=== PATIENT | female | born 2005 | race Caucasian/White ===

== ENCOUNTER 2023-03-07 11:51 | Emergency (ER) | payer MEDICAID, SELFPAY ==
[2023-03-07 11:57] VITALS: BP 120/87; PULSE 100; RESP 18; TEMP 36.8; O2SAT 99; BMI 18.8
--- NOTE | 2023-03-07 11:57 | ED.GENADULT ---
HPI - General Adult General Chief complaint: Head Injury Stated complaint: head injury Time Seen by Provider: 03/07/23 12:00 Source: patient Mode of arrival: ambulatory Limitations: no limitations History of Present Illness HPI narrative: 18yo female presenting for evaluation of head injury yesterday. Patient stated she hit her posterior head on a wall yesterday while playing with her dog. No LOC, no laceration, no vomiting. Mild nausea, neck pain, and blurriness following incident, worse when she woke up this morning. complaint: head injury Onset (ago): day(s) (1) Location: head (posterior) Radiation: neck Relieving factors: rest Associated symptoms: nausea/vomiting (nausea, no vomiting) Treatments prior to arrival: none Related Data Allergies Allergy/AdvReac Type Severity Reaction Status Date / Time No Known Allergies Allergy Verified 03/07/23 11:59 Review of Systems Review of Systems: Yes all other systems are reviewed and are negative [facility] Social History Social History Advance Directives: No Advance Directives Information Provided: Yes Physical Exam ED Vital Signs: Vital Signs - 24 hr 03/07/23 11:57 Temperature 98.3 F Pulse Rate 100 Respiratory Rate 18 Blood Pressure 120/87 Pulse Oximetry 99 Oxygen Delivery Method Room Air BMI result Body Mass Index 18.8 Appearance: Alert. Oriented X3. No acute distress. Head: normocephalic, atraumatic. Eyes: Pupils equal, round and reactive to light. Neck: Normal inspection. Neck supple. Skin: Skin warm and dry. Normal skin color. Normal skin turgor. No rashes. Extremities: No lower extremity edema. No joint swelling. Neuro/psych: Oriented X 3. No motor deficit. No sensory deficit. Normal speech and cognition. Course Course Course Narrative: RME - 18yo female presenting for evaluation of head injury yesterday. Patient stated she hit her occipital on a wall yesterday while playing with her dog. No LOC, no laceration, no vomiting. Mild nausea, neck pain, and blurriness following incident, worse when she woke up this morning. Plan: discharge Medical Decision Making Medical Decision Making [facility] Narrative: 18yo female presenting for evaluation of closed head injury to her posterior head on a wall yesterday while playing with her dog, no LOC. Nausea and neck pain consistent with mild concussion. Patient informed to avoid screens until symptoms begin to resolve and return if she develops new or worsening symptoms. Differential Diagnosis Differential Diagnoses: The differential diagnosis associated with the presentation includes concussion, doubt ICH, TBI Prescription Management I considered prescription management with: Pain Medication Critical Care Time Critical Care Time Critical Care Time: No Discharge Plan Discharge Clinical Impression: Closed head injury Patient Disposition: Home, Self-Care Instructions: Head Injury (ED) Additional Instructions: You may have a mild concussion. Treatment is rest. Avoid screens until your symptoms improve. You may return to work/school tomorrow. Return to the ER if you develop new or worsening symptoms. Stand Alone Forms: Work/School Release Interventions: ED Discharge Assessment Last Done: 03/07/23 12:00 Discharge Date/Time: 03/07/23 12:07
--- NOTE | 2023-03-07 12:00 | PC.NURSE ---
EVAL AND DC BY PIT PA
== END 2023-03-07 12:07 | disposition home or self-care (01) ==
LOC: HO.ED 12:06
PROVIDERS: Emergency Provider Emergency Medicine
DX: S09.90XA Unspecified injury of head, initial encounter (principal); W22.09XA Striking against other stationary object, initial encounter; Y93.89 Activity, other specified; Y92.019 Unspecified place in single-family (private) house as the place of occurrence of the external cause; Y99.9 Unspecified external cause status
CPT/HCPCS: 99282